=== PATIENT | female | born 1995 | race Asian ===

== ENCOUNTER 2023-12-23 12:41 | Emergency (ER) | payer MEDICAID ==
[~2023-12-23] VITALS: Ht 172.7 cm; Wt 59.0 kg
[2023-12-23 14:22] VITALS: BP 115/71; TEMP 98.2; O2SAT 100
== END 2023-12-23 14:22 | disposition home or self-care (01) ==
LOC: ER 12:44
DX: S61.011A Laceration without foreign body of right thumb without damage to nail, initial encounter (principal); W26.8XXA Contact with other sharp object(s), not elsewhere classified, initial encounter; Y93.89 Activity, other specified; Y92.090 Kitchen in other non-institutional residence as the place of occurrence of the external cause; Y99.8 Other external cause status

== ENCOUNTER 2024-05-13 19:44 | Emergency (ER) | payer MEDICAID ==
[~2024-05-13] VITALS: Ht 172.7 cm; Wt 54.4 kg
[2024-05-13 21:01] LABS: BASOPHILS % (AUTO) 0.4 % (0.0-2.0); EOSINOPHILS # (AUTO) 0.1 K/uL (0.0-0.7); EOSINOPHILS % (AUTO) 1.6 % (0.0-6.0); HEMATOCRIT 33 % (33-45); HEMOGLOBIN 11.5 g/dL (11.5-14.8); LYMPHOCYTES # (AUTO) 1.5 K/uL (0.8-4.8); LYMPHOCYTES % (AUTO) 26.2 % (20.0-44.0); MEAN CORPUSCULAR HEMOGLOBIN 31 PG (26.0-33.0); MEAN CORPUSCULAR HGB CONC 34 g/dl (31.0-36.0); MEAN CORPUSCULAR VOLUME 90 fL (82-100); MONOCYTES # (AUTO) 0.5 K/uL (0.1-1.30); MONOCYTES % (AUTO) 9.1 % (2.0-12.0); NEUTROPHILS # (AUTO) 3.7 K/uL (1.8-8.9); NEUTROPHILS % (AUTO) 62.7 % (43.0-81.0); PLATELET COUNT (AUTO) 322 K/uL (150-450); RED BLOOD CELL COUNT(AUTO) 3.72 MIL/uL (4.0-5.2); RED CELL DISTRIBUTION WIDTH 12.8 % (11.5-15.0); WHITE BLOOD COUNT (AUTO) 5.8 K/uL (4.3-11.0)
[2024-05-13] MEDS: diphenhydrAMINE HCL 50 MG/ML VIAL IV ONE (21:02)
[2024-05-13] MEDS: IV NS 0.9% 1,000 ML BAG IV ONE (21:02)
[2024-05-13] MEDS: METOCLOPRAMIDE HCL 10 MG/2 ML VIAL IV ONE (21:02)
[2024-05-13] MEDS: SUMATRIPTAN SUCCINATE 6 MG/0.5 ML VIAL SQ ONE (21:03)
[2024-05-13 21:21] LABS: ALBUMIN 3.3 g/dL (3.4-5.0); BILIRUBIN,DIRECT 0.1 mg/dL (0.0-0.2); BILIRUBIN,TOTAL 0.3 mg/dL (0.2-1.0); TOTAL PROTEIN, SERUM 7.6 g/dL (6.4-8.2)
[2024-05-13 21:34] LABS: CALCIUM, SERUM 8.3 mg/dL (8.5-10.1); CARBON DIOXIDE 26 mmol/L (21-32); CHLORIDE 104 mmol/L (98-107); CREATININE 0.8 mg/dL (0.6-1.3); GLUCOSE 96 mg/dL (74-106); POTASSIUM 4.4 mmol/L (3.5-5.1); SALICYLATE 6.9 mg/dL (2.8-20.0); SODIUM SERUM 139 mmol/L (136-145); UREA NITROGEN, BLOOD 17 mg/dL (7-18)
[2024-05-13 22:17] LABS: ACETAMINOPHEN < 10 ug/ml (10-30)
[2024-05-13 22:25] VITALS: BP 115/81; TEMP 98; O2SAT 98
== END 2024-05-13 22:25 | disposition home or self-care (01) ==
LOC: ER 19:48
DX: R51.9 Headache, unspecified (principal); R50.9 Fever, unspecified; M79.10 Myalgia, unspecified site
CPT/HCPCS: 99285; 96374; 70450; 96361; 96375; 85025; 80048; 80076; 36415; 80143; 80179; 96372; J1200; J3030; J2765; J7060; J7030